=== PATIENT | male | born 1995 | race Caucasian/White ===

== ENCOUNTER 2018-11-24 16:29 | Emergency (ER) | payer MEDICAID ==
[~2018-11-24] VITALS: Ht 172.7 cm; Wt 90.7 kg
[2018-11-24 16:55] VITALS: BP 119/71; Ht 172.7 cm; Wt 90.7 kg
== END 2018-11-24 18:57 | disposition home or self-care (01) ==
LOC: ED 16:29
DX: S61.432A Puncture wound without foreign body of left hand, initial encounter (principal); W45.0XXA Nail entering through skin, initial encounter; Y93.89 Activity, other specified; Y92.89 Other specified places as the place of occurrence of the external cause; Y99.8 Other external cause status
CPT/HCPCS: 90715